=== PATIENT | male | born 1960 | race American Indian/Alaskan Native ===

== ENCOUNTER 2016-07-19 09:14 | Inpatient (IN) | payer BC ==
[2016-07-19 09:14] VITALS: BMI 26.7
[2016-07-19] MEDS ORDERED: Sodium Chloride 0.9% 500 ML IV STA (10:08)
--- NOTE | 2016-07-19 10:12 | ED PDOC ---
HPI: Back Time Seen by Provider: 07/19/16 10:04 Chief Complaint (Nursing): Back Pain Chief Complaint (Provider): Back pain History Per: Patient History/Exam Limitations: no limitations Onset/Duration Of Symptoms: Days (Months) Current Symptoms Are (Timing): Still Present Severity: Moderate Previous Symptoms: Back Pain Additional Complaint(s): Pt. here with back pain across lower. Constant, worsening. No numbness, tingles, weakness, headaches, chest pain, dyspnea. No incontinence or constipation. No fever abd pain. Seen by Dr. Carson. Getting treatment with no significant relief. Past Medical History Reviewed: Nursing Documentation, Vital Signs Vital Signs: Last Vital Signs Temp 98 F 07/19/16 09:30 Pulse 56 L 07/19/16 09:30 Resp 16 07/19/16 09:30 BP 144/87 07/19/16 09:30 Pulse Ox 100 07/19/16 09:30 - Medical History PMH: Back Problems, CAD, HTN, Chronic Kidney Disease Denies: Depression - Surgical History Surgical History: No Surg Hx - Family History Family History: States: Unknown Family Hx - Social History Current smoker - smoking cessation education provided: No Alcohol: None Drugs: Denies - Home Medications Home Medications: Ambulatory Orders Medication Instructions Recorded Aspirin [Ecotrin] 81 mg PO DAILY #0 tabec 08/24/14 Lisinopril [Zestril] 2.5 mg PO DAILY 06/01/16 Metoprolol Gibson/Hydrochlorothiaz 1 each PO DAILY 06/01/16 [Metoprolol ER-Hctz 50-12.5 mg] diaZEpam [Valium] 5 mg PO Q8 PRN #10 tab 06/01/16 oxyCODONE/Acetaminophen [Percocet 1 ea PO BID PRN #5 tab 07/04/16 5/325 mg Tab] Ibuprofen [Motrin Tab] 800 mg PO BID #12 tab 07/11/16 - Allergies Allergies/Adverse Reactions: Allergies Allergy/AdvReac Type Severity Reaction Status Date / Time No Known Allergies Allergy Verified 07/12/16 15:06 Review of Systems ROS Statement: Except As Marked, All Systems Reviewed And Found Negative Musculoskeletal: Positive for: Back Pain Physical Exam - Reviewed Nursing Documentation Reviewed: Yes Vital Signs Reviewed: Yes - Physical Exam Appears: Positive for: Non-toxic, No Acute Distress Head Exam: Positive for: ATRAUMATIC, NORMAL INSPECTION, NORMOCEPHALIC Skin: Positive for: Normal Color, Warm, DRY ENT: Positive for: Normal ENT Inspection. Negative for: Nasal Congestion, Pharyngeal Erythema Neck: Positive for: Normal, Painless ROM, Supple Cardiovascular/Chest: Positive for: Regular Rate, Rhythm Respiratory: Positive for: CNT, Normal Breath Sounds Gastrointestinal/Abdominal: Positive for: Normal Exam, Bowel Sounds, Soft. Negative for: Tenderness Back: Negative for: L CVA Tenderness, R CVA Tenderness, Vertebral Tenderness Extremity: Positive for: Other (straight leg positive at 45*). Negative for: Normal ROM (limited at the hips due to pain in back), Tenderness, Pedal Edema Neurologic/Psych: Positive for: Alert, Oriented - ECG O2 Sat by Pulse Oximetry: 100 Pulse Ox Interpretation: Normal - Progress ED Course And Treament: 1013: Spoke with Dr. Carson. Will admit for further evaluation. He will give further orders when pt. reaches floor. Disposition - Clinical Impression Clinical Impression: Back pain - Patient ED Disposition Is Patient to be Admitted: Yes Counseled Patient/Family Regarding: Diagnosis - Disposition Disposition Time: 10:14 Condition: STABLE - Pt Status Changed To: Hospital Disposition Of: Inpatient - Admit Certification Admit to Inpatient:: After my assessment, the patient will require hospitalization for at least two midnights. This is because of the severity of symptoms shown, intensity of services needed, and/or the medical risk in this patient being treated as an outpatient. - POA Present On Arrival: None
--- NOTE | 2016-07-19 10:31 | RAD ---
HISTORY: dyspnea COMPARISON: None available. TECHNIQUE: Chest, one view. FINDINGS: Examination limited by habitus. LUNGS: No focal consolidation. Please note that chest x-ray has limited sensitivity for the detection of pulmonary masses. PLEURA: No significant pleural effusion identified. No definite pneumothorax . CARDIOVASCULAR: Heart size appears top normal. OSSEOUS STRUCTURES: No acute osseous abnormality identified. VISUALIZED UPPER ABDOMEN: Unremarkable. OTHER FINDINGS: None. IMPRESSION: No focal consolidation, significant pleural effusion, or definite pneumothorax identified.
[2016-07-19 10:54] LABS: BASO % 1.2 % (0.0-2.0); EOS # 0.1 K/uL (0.0-0.7); EOS % 3.2 % (0.0-4.0); HEMATOCRIT 48.4 % (35.0-51.0); LYMPH # 1.7 K/uL (1.0-4.3); LYMPH % 42.4 % (20.0-40.0); MEAN CELL VOLUME 87.3 fl (80.0-94.0); MEAN CORPUSCULAR HEMOGLOBIN 28.9 pg (27.0-31.0); MEAN CORPUSCULAR HGB CONC 33.1 g/dL (33.0-37.0); MEAN PLATELET VOLUME 9.4 fl (7.2-11.7); MONO # 0.4 K/uL (0.0-0.8); MONO % 10.5 % (0.0-10.0); NEUT # 1.7 K/uL (1.8-7.0); NEUT % 42.7 % (50.0-75.0); NRBC % 0.3 % (0.0-0.0); RED CELL DISTRIBUTION WIDTH 12.8 % (11.5-14.5)
[2016-07-19 10:57] LABS: ALB/GLOB RATIO 1.2 (1.0-2.1); ALKALINE PHOSPHATASE 86 U/L (38-126); ALT/SGPT 23 U/L (21-72); AST/SGOT 21 U/L (17-59); BLOOD UREA NITROGEN 14 mg/dl (9-20); CALCIUM 9.5 mg/dL (8.4-10.2); CARBON DIOXIDE 31 mmol/L (22-30); CHLORIDE 102 mmol/L (98-107); GFR AFRICAN-AMERICAN > 60; GLUCOSE,RANDOM 90 mg/dL (75-110); POTASSIUM 3.8 MMOL/L (3.6-5.0); SODIUM 144 mmol/l (132-148); TOTAL PROTEIN 7.9 G/DL (6.3-8.2)
[2016-07-19 11:05] LABS: PARTIAL THROMBOPLASTIN TIME 28.1 SECONDS (23.3-32.5)
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
[2016-07-19] MEDS ORDERED: HYDROCHLOROTHIAZIDE PO SCH (17:00)
[2016-07-19] MEDS ORDERED: [UNRECOGNIZED DRUG - OTHER] PO SCH (17:00)
[2016-07-19] MEDS ORDERED: LISINOPRIL PO SCH (17:00)
[2016-07-20 06:38] LABS: HEMATOCRIT 51.2 % (35.0-51.0); MEAN CELL VOLUME 88.4 fl (80.0-94.0); MEAN CORPUSCULAR HEMOGLOBIN 28.6 pg (27.0-31.0); MEAN CORPUSCULAR HGB CONC 32.3 g/dL (33.0-37.0); RED CELL DISTRIBUTION WIDTH 12.7 % (11.5-14.5); WHITE BLOOD COUNT 5.4 K/uL (4.8-10.8)
[2016-07-20] MEDS ORDERED: Propofol 10 mg/ml Inj (20 ML) ONE ×3 (06:54→09:26)
[2016-07-20] MEDS ORDERED: Phenylephrine 10 mg/ml Inj ONE (06:55)
[2016-07-20] MEDS ORDERED: Succinylcholine 200 mg/10 ml Inj IV ONE ×2 (06:55→07:06)
[2016-07-20] MEDS ORDERED: ePHEDrine 50 mg/ml Inj ONE ×2 (06:55→07:06)
[2016-07-20] MEDS ORDERED: Rocuronium 10 mg/ml (5 ml) ONE ×2 (06:55→07:06)
[2016-07-20] MEDS ORDERED: Midazolam 2 MG/2 ML VIAL ONE ×2 (06:55→07:06)
[2016-07-20] MEDS ORDERED: Bupivacaine HCl 0.25% PF (30 ml) Inj ONE ×2 (07:01→07:51)
[2016-07-20] MEDS ORDERED: APROTININ/FIBRINOGEN(TISSEEL) ONE (07:02)
[2016-07-20] MEDS ORDERED: Absorbable Gelatin Sponge Size 12-7 ONE (07:02)
[2016-07-20] MEDS ORDERED: Bacitracin Ointment 30 GM TUBE ONE (07:02)
[2016-07-20] MEDS ORDERED: Thrombin Topical 5,000 IU Spray Kit ONE (07:02)
[2016-07-20 07:08] LABS: BLOOD UREA NITROGEN 17 mg/dl (9-20); CALCIUM 9.3 mg/dL (8.4-10.2); CARBON DIOXIDE 30 mmol/L (22-30); CHLORIDE 101 mmol/L (98-107); GFR AFRICAN-AMERICAN > 60; GLUCOSE,RANDOM 96 mg/dL (75-110); POTASSIUM 3.7 MMOL/L (3.6-5.0); SODIUM 142 mmol/l (132-148)
[2016-07-20] MEDS ORDERED: Lidocaine 2% w Epi 1:100,000 Inj IJ ONE (07:30)
[2016-07-20] MEDS ORDERED: Absorbable Gelatin Sponge Size 100 ONE (07:30)
[2016-07-20 08:07] LABS: RBC URINE 1 /hpf (0-3); URINE BILIRUBIN NEGATIVE (NEGATIVE); URINE BLOOD SMALL (NEGATIVE); URINE COLOR YELLOW (YELLOW); URINE GLUCOSE (UA) NEG (Normal); URINE KETONE NEGATIVE (NEGATIVE); URINE LEUKOCYTE ESTERASE NEG Leu/uL (Negative); URINE PROTEIN NEGATIVE (NEGATIVE); URINE UROBILINOGEN 0.2-1.0 mg/dL (0.2-1.0); WBC URINE < 1 /hpf (0-5)
[2016-07-20] MEDS ORDERED: Lactated Ringer's 1,000 ML IV ONE ×2 (08:25→13:00)
[2016-07-20] MEDS ORDERED: Sodium Chloride 0.9% 200 ML IV ONE (08:35)
[2016-07-20] MEDS ORDERED: HEMOSTATIC MATRIX 10 ML DIS.NEEDLE TOP ONE (09:00)
[2016-07-20] MEDS ORDERED: Metoprolol Succinate 100 mg XL Tab PO SCH (09:00)
[2016-07-20] MEDS ORDERED: Desflurane Inhalation Anesthetic Liq (240 ml) ONE (09:17)
[2016-07-20] MEDS ORDERED: Dexamethasone 4 mg/1 ml ONE (09:25)
[2016-07-20] MEDS ORDERED: Neostigmine Methylsulfate 2 MG/2 ML ML IV ONE (09:31)
[2016-07-20] MEDS ORDERED: Neostigmine Methylsulfate 3mg/3ml Syringe IV ONE (09:31)
[2016-07-20] MEDS ORDERED: Naloxone 0.4 mg/ml Inj (Adult) IVP PRN (10:37)
[2016-07-20] MEDS: HYDROmorphone 0.5 mg/0.5 ml ISec IVP PRN ×2 (10:50→11:30)
--- NOTE | 2016-07-20 12:06 | RAD ---
PROCEDURE: Intraoperative Fluoroscopy. HISTORY: PLIF FINDINGS: Fluoroscopic assistance was provided for . 35.1 seconds fluoroscopy time utilized during this procedure. Radiation dose = 21.05 mGy. Please refer to the operative report from Dr. Tali deal
--- NOTE | 2016-07-20 14:44 | CP.PCM.CON ---
History of Present Illness - History of Present Illness History of Present Illness: pt seen earlier this am,pt admitted with intractable LBP,ongoing for many year' s s/p fall down stair's,minimal improvement with chiropractic Rx and prescribed meds and PT,symptoms worsening over past year,with difficulty ambulating,out patient MRI showing lumbar spondylosis at L4-5 with severe canal stenosis, surgical and non surgical options d/w pt,due to worsening severity of symptoms pt wishes to proceed with surgical intervention,denies pelvic paresthesias, bowel or bladder incontinance. Review of Systems - Review of Systems Systems not reviewed;Unavailable: Acuity of Condition - Cardiovascular Additional comments: hx of palpitations and abnormal EKG's/asymptomatic,full w/u by his sales service coordinator, cardiac cath in past showing vessel blockage no intervention warranted,pt instructed to use ASA 81 daily,denies AR,angina - Gastrointestinal Additional comments: colonscopy 1 year ago,polypectomy/non cancerous,denies change in bowel habits - Neurological Neurological: As Per HPI - Hematologic/Lymphatic Additional comments: ASA 81 mg daily Past Patient History - Infectious Disease Hx of Infectious Diseases: None - Tetanus Immunizations Tetanus Immunization: Unknown - Past Social History Smoking Status: Never Smoked Chewing Tobacco Use: No Cigar Use: No 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 Alcohol: None Drugs: Denies Home Situation {Lives}: With Family Domestic Violence: Negative - CARDIAC Hx Cardiac Disorders: Yes - PULMONARY Hx Respiratory Disorders: No - NEUROLOGICAL Hx Neurological Disorder: No - HEENT Hx HEENT Problems: No - RENAL Hx Chronic Kidney Disease: Yes - ENDOCRINE/METABOLIC Hx Endocrine Disorders: No - HEMATOLOGICAL/ONCOLOGICAL Hx Blood Disorders: No - INTEGUMENTARY Hx Dermatological Problems: No - MUSCULOSKELETAL/RHEUMATOLOGICAL Hx Musculoskeletal Disorders: Yes Hx Back Pain: Yes (CHRONIC) Hx Falls: No - GASTROINTESTINAL Hx Gastrointestinal Disorders: No - GENITOURINARY/GYNECOLOGICAL Hx Genitourinary Disorders: No - PSYCHIATRIC Hx Depression: No - SURGICAL HISTORY Hx Cardiac Catheterization: Yes (NO STENTS) Other/Comment: Colonoscopy - ANESTHESIA Hx Anesthesia: Yes Hx Anesthesia Reactions: No Meds Allergies/Adverse Reactions: Allergies Allergy/AdvReac Type Severity Reaction Status Date / Time No Known Allergies Allergy Verified 07/12/16 15:06 - Medications Medications: Current Medications Acetaminophen (Tylenol 325mg Tab) 650 mg PO Q4 PRN PRN Reason: Pain, Mild (1-3) Aspirin (Ecotrin) 81 mg PO DAILY [facility] Cyanocobalamin (Vitamin B12) 250 mcg PO DAILY [facility] Hydrochlorothiazide (Microzide) 12.5 mg PO DAILY [facility] Hydromorphone HCl (Dilaudid) 0.5 mg IVP Q10M PRN PRN Reason: Pain, moderate (4-7) Last Admin: 07/20/16 11:30 Dose: 0.5 mg Hydromorphone HCl (Dilaudid 0.2 Mg/Ml Dining Room Host) 0 mg IV PRN PRN; Protocol PRN Reason: Pain, moderate (4-7) Last Admin: 07/20/16 12:51 Dose: 0 mg Lactated Ringer's (Lactated Ringer's) 1,000 mls @ 125 mls/hr IV .Q8H [facility] Dexamethasone 4 mg/ Sodium (Chloride) 51 mls @ 51 mls/hr IVPB Q8 [facility] Lisinopril (Zestril) 20 mg PO DAILY [facility] Last Admin: 07/19/16 13:49 Dose: Not Given Metoprolol Succinate (Toprol Xl) 100 mg PO DAILY [facility] Last Admin: 07/20/16 08:29 Dose: Not Given Morphine Sulfate (Morphine) 1 mg IVP Q4 PRN PRN Reason: Pain, moderate (4-7) Morphine Sulfate (Morphine) 2 mg IVP Q4 PRN PRN Reason: Pain, severe (8-10) Naloxone HCl (Narcan) 0.1 mg IVP Q2M PRN PRN Reason: Opiate reversal Physical Exam - Constitutional Appears: Well, Non-toxic, No Acute Distress - Head Exam Head Exam: ATRAUMATIC, NORMAL INSPECTION, NORMOCEPHALIC - ENT Exam ENT Exam: Mucous Membranes Moist, Normal Exam - Neck Exam Neck exam: Positive for: Normal Inspection - Respiratory Exam Respiratory Exam: Clear to Auscultation Bilateral, NORMAL BREATHING PATTERN - Cardiovascular Exam Cardiovascular Exam: REGULAR RHYTHM - GI/Abdominal Exam GI & Abdominal Exam: Normal Bowel Sounds, Soft Additional comments: no pelvic paresthesias - Rectal Exam Rectal Exam: Deferred - Extremities Exam Extremities exam: Positive for: normal inspection, pedal pulses present - Back Exam Back exam: vertebral tenderness - Neurological Exam Neurological exam: Alert, Oriented x3 Additional comments: RIVERO x 4 antigravity with 5/5 motor strength,sensory intact,depressed DTR's,neg babinski - Psychiatric Exam Psychiatric exam: Normal Affect, Normal Mood - Skin Skin Exam: Dry, Intact Results - Vital Signs Recent Vital Signs: Last Vital Signs Temp 97.3 F L 07/20/16 13:00 Pulse 57 L 07/20/16 13:15 Resp 18 07/20/16 13:15 BP 136/92 H 07/20/16 13:15 Pulse Ox 98 07/20/16 13:15 - Labs Result Diagrams: 07/20/16 06:20 07/20/16 06:20 - Impressions Impression: MRI images reviewed by Dr. Mederos Assessment & Plan - Assessment and Plan (Free Text) Assessment: 56 yo male with Lumbar Spondylosis,severe canal and foraminal stenosis, intractable pain/Instability Plan: due to worsening symptoms and difficulty ambulating,ADL's being effected,will proceed with proposed L4-5 Decompressive Lumbar Laminectomy and Instrumeneted Fusion,risks and benefits d/w pt,expressed understanding and wishes to proceed.
--- NOTE | 2016-07-20 16:06 | CP.PCM.PN ---
<AnilCeciliomisty - Last Filed: 07/20/16 16:02> Subjective - Date & Time of Evaluation Date of Evaluation: 07/20/16 Time of Evaluation: 16:02 - Subjective Subjective: d/w attending. no overnight events. s/p laminectomy L4-L5. pain controlled. MARK drain in place S/S x1 Objective - Vital Signs/Intake and Output Vital Signs (last 24 hours): Temp Pulse Resp BP Pulse Ox 97.9 F 65 20 131/84 95 07/20/16 15:42 07/20/16 15:42 07/20/16 15:42 07/20/16 15:42 07/20/16 15:42 Intake and Output: 07/20/16 07/20/16 06:59 18:59 Intake Total 300 Balance 300 - Medications Medications: Current Medications Acetaminophen (Tylenol 325mg Tab) 650 mg PO Q4 PRN PRN Reason: Pain, Mild (1-3) Aspirin (Ecotrin) 81 mg PO DAILY [facility] Cyanocobalamin (Vitamin B12) 250 mcg PO DAILY [facility] Hydrochlorothiazide (Microzide) 12.5 mg PO DAILY [facility] Hydromorphone HCl (Dilaudid) 0.5 mg IVP Q10M PRN PRN Reason: Pain, moderate (4-7) Last Admin: 07/20/16 11:30 Dose: 0.5 mg Hydromorphone HCl (Dilaudid 0.2 Mg/Ml Early Childhood Education Worker) 0 mg IV PRN PRN; Protocol PRN Reason: Pain, moderate (4-7) Last Admin: 07/20/16 12:51 Dose: 0 mg Lactated Ringer's (Lactated Ringer's) 1,000 mls @ 125 mls/hr IV .Q8H [facility] Dexamethasone 4 mg/ Sodium (Chloride) 51 mls @ 51 mls/hr IVPB Q8 [facility] Lisinopril (Zestril) 20 mg PO DAILY [facility] Last Admin: 07/19/16 13:49 Dose: Not Given Metoprolol Succinate (Toprol Xl) 100 mg PO DAILY [facility] Last Admin: 07/20/16 08:29 Dose: Not Given Morphine Sulfate (Morphine) 1 mg IVP Q4 PRN PRN Reason: Pain, moderate (4-7) Morphine Sulfate (Morphine) 2 mg IVP Q4 PRN PRN Reason: Pain, severe (8-10) Naloxone HCl (Narcan) 0.1 mg IVP Q2M PRN PRN Reason: Opiate reversal - Labs Labs: PT 11.4 SECONDS (9.6-11.2) H 07/19/16 10:40 INR 1.10 (0.92-1.08) H 07/19/16 10:40 APTT 28.1 SECONDS (23.3-32.5) 07/19/16 10:40 - Constitutional Appears: Non-toxic, No Acute Distress - Head Exam Head Exam: NORMAL INSPECTION - Eye Exam Eye Exam: Normal appearance - ENT Exam ENT Exam: Mucous Membranes Moist - Neck Exam Neck Exam: Normal Inspection - Respiratory Exam Respiratory Exam: Clear to Ausculation Bilateral - Cardiovascular Exam Cardiovascular Exam: Bradycardia, REGULAR RHYTHM - GI/Abdominal Exam GI & Abdominal Exam: Soft - Extremities Exam Extremities Exam: Normal Inspection - Back Exam Additional comments: binder in place MARK x1 S/S - Neurological Exam Neurological Exam: Alert, Oriented x3 - Skin Skin Exam: Dry, Warm Assessment and Plan - Assessment and Plan (Free Text) Assessment: 56yo M with PMHx HTN and cardiac cath admitted for intractable back pain. POD #0 s/p L4-L5 laminectomy -NS on board, appreciate input -pain control -steroid taper HTN -c/w home meds bradycardia -troponin neg -prior cardiac workup neg DVT ppx -SCDs -restart pharmacological agents per NS <Singh Carson - Last Filed: 07/24/16 10:17> Objective - Vital Signs/Intake and Output Vital Signs (last 24 hours): Temp Pulse Resp BP Pulse Ox 97.7 F 56 L 20 148/81 99 07/24/16 08:30 07/24/16 09:22 07/24/16 08:30 07/24/16 09:22 07/24/16 08:30 Intake and Output: 07/24/16 07/24/16 06:59 18:59 Intake Total 700 Output Total 560 Balance 140 - Medications Medications: Current Medications Acetaminophen (Tylenol 325mg Tab) 650 mg PO Q4 PRN PRN Reason: Pain, Mild (1-3) Chlorpromazine (Thorazine) 25 mg PO Q8 [facility] Hydrochlorothiazide (Microzide) 12.5 mg PO DAILY [facility] Last Admin: 07/24/16 09:21 Dose: 12.5 mg Lisinopril (Zestril) 20 mg PO DAILY [facility] Last Admin: 07/24/16 09:22 Dose: 20 mg Metoprolol Tartrate (Lopressor) 25 mg PO Q12 [facility] Last Admin: 07/24/16 09:17 Dose: Not Given Pantoprazole Sodium (Protonix Ec Tab) 40 mg PO DAILY [facility] Senna/Docusate Sodium (Senokot S 50 Mg-8.6 Mg) 1 tab PO HS [facility] Last Admin: 07/23/16 21:11 Dose: Not Given Simethicone (Mylicon Chew Tab) 80 mg PO PCHS PRN PRN Reason: Flatulence Last Admin: 07/24/16 02:25 Dose: 80 mg Tramadol HCl (Ultram) 50 mg PO Q6 PRN PRN Reason: Pain, severe (8-10) - Labs Labs: 07/23/16 06:30 07/23/16 06:30 PT 11.4 SECONDS (9.6-11.2) H 07/19/16 10:40 INR 1.10 (0.92-1.08) H 07/19/16 10:40 APTT 28.1 SECONDS (23.3-32.5) 07/19/16 10:40 Assessment and Plan (1) Lumbosacral radiculopathy Status: Acute (2) Lumbar herniated disc Status: Acute (3) Hypertension Status: Acute (4) Gastritis Status: Acute (5) GERD (gastroesophageal reflux disease) Status: Acute - Assessment and Plan (Free Text) Plan: I was present during evaluation and examined patient Discussed with DR Lawanda zaidi plans of care and pain meds. Singh Carson M.D.
[2016-07-20] MEDS: Dexamethasone 4 MG in Sodium Chloride 0.9% 50 ML IVPB SCH (17:10)
[2016-07-20] MEDS: CYANOCOBALAMIN 500 MCG TAB PO SCH (17:12)
[2016-07-20] MEDS: Lactated Ringer's 1,000 ML IV SCH ×2 (17:12→20:26)
[2016-07-21] MEDS: Dexamethasone 4 MG in Sodium Chloride 0.9% 50 ML IVPB SCH ×3 (00:51→16:09)
[2016-07-21] MEDS: Lactated Ringer's 1,000 ML IV SCH ×3 (05:24→17:50)
[2016-07-21 06:54] LABS: BASO % 0.1 % (0.0-2.0); HEMATOCRIT 44.4 % (35.0-51.0); LYMPH # 0.8 K/uL (1.0-4.3); LYMPH % 7.9 % (20.0-40.0); MEAN CELL VOLUME 87.4 fl (80.0-94.0); MEAN CORPUSCULAR HEMOGLOBIN 28.9 pg (27.0-31.0); MEAN CORPUSCULAR HGB CONC 33.1 g/dL (33.0-37.0); MEAN PLATELET VOLUME 9.6 fl (7.2-11.7); MONO # 0.4 K/uL (0.0-0.8); MONO % 4.1 % (0.0-10.0); NEUT # 9.2 K/uL (1.8-7.0); NEUT % 87.9 % (50.0-75.0); NRBC % 0.1 % (0.0-0.0); PLATELET COUNT 172 K/uL (130-400); RED CELL DISTRIBUTION WIDTH 12.6 % (11.5-14.5); WHITE BLOOD COUNT 10.4 K/uL (4.8-10.8)
[2016-07-21 06:59] LABS: BLOOD UREA NITROGEN 18 mg/dl (9-20); CALCIUM 9.1 mg/dL (8.4-10.2); CARBON DIOXIDE 24 mmol/L (22-30); CHLORIDE 102 mmol/L (98-107); GFR AFRICAN-AMERICAN > 60; GLUCOSE,RANDOM 139 mg/dL (75-110); POTASSIUM 3.9 MMOL/L (3.6-5.0); SODIUM 140 mmol/l (132-148)
--- NOTE | 2016-07-21 07:28 | OP ---
PROCEDURE DATE: 07/20/2016 PREOPERATIVE DIAGNOSIS: Lumbar spondylosis. POSTOPERATIVE DIAGNOSIS: Lumbar spondylosis. PROCEDURE: Left L4-5 hemilaminotomy, decompression, L4-5 pedicle screw fixation instrumentation usin g Amendia system, L4-5 posterolateral fusion. Fluoroscopy has been used. Microscope has been used. SURGEON: Dr. Mederos. CANCER PROGRAM DIRECTOR: GARY Olmedo. Nicole Rodríguez stayed throughout the case from the beg inning to the end and helped me perform the surgery. DESCRIPTION OF PROCEDURE: The patient was brought to the operating room, administered general endotr acheal anesthesia, placed in a prone position on the Inder table. Care was taken to protect all th e pressure points. Back of the lumbar area thoroughly prepped and draped in the same sterile manner after marking for the skin incision for lumbar laminectomy and fusion at L4-5. After prepping and dr aping the area, skin has been incised. Bleeding skins have been controlled with bipolar form setter steel pan forms. Using a Bovie form setter steel pan forms, the paraspinal muscles have been detached from attachment of spinous proce ss and lamina of L4-5 bilaterally. Identification of levels has been done with the help of fluorosco py. At this point, by using traditional landmark, point of entry has been noted for the pedicle scre w fixation at L4-5. Initially, a K-wire, later a drill has been used in order to enter the pedicles of L4-5. Polyaxial titanium screws placed. Amendia system has been placed in the pedicles of L4-5 u nder fluoroscopy-guided control. After that, the titanium rods have been placed. The cap nuts have been used in order to secure them. At this point, under microscopic examination on the left side, he milaminotomy has been performed including the removal of the facet and the ligamentum flavum on the l eft side and at this point, once this has been done, the lateral aspect of the facet joint, transvers e process have been decorticated. Demineralized bone placed in the area achieving a posterolateral f usion. After that, hemostasis was best achieved. Inder-Perez drain placed in the wound, brought o ut through a separate stab next to incision. Muscles and fascia closed with 1-0 Vicryl, subcutaneous with 3-0 Vicryl. Skin has been closed with intradermal 3-0 Vicryl stitches. The patient tolerated the procedure. After procedure, mobilized to the recovery room in stable condition. Kurtis Mederos MD cc: [phone] TT: 07/21/2016 06:57:53 tn
--- NOTE | 2016-07-21 08:53 | CP.PCM.PN ---
<AnilLawanda - Last Filed: 07/21/16 08:50> Subjective - Date & Time of Evaluation Date of Evaluation: 07/21/16 Time of Evaluation: 08:50 - Subjective Subjective: evaluated with attending. no overnight events. s/p laminectomy L4-L5. pain controlled. MARK drain in place S/S x1. plan to walk today Objective - Vital Signs/Intake and Output Vital Signs (last 24 hours): Temp Pulse Resp BP Pulse Ox 98.0 F 60 20 125/77 98 07/21/16 08:21 07/21/16 08:21 07/21/16 08:21 07/21/16 08:21 07/21/16 08:21 Intake and Output: 07/21/16 07/21/16 06:59 18:59 Output Total 940 Balance -940 - Medications Medications: Current Medications Acetaminophen (Tylenol 325mg Tab) 650 mg PO Q4 PRN PRN Reason: Pain, Mild (1-3) Aspirin (Ecotrin) 81 mg PO DAILY [facility] Last Admin: 07/20/16 17:12 Dose: Not Given Cyanocobalamin (Vitamin B12) 250 mcg PO DAILY [facility] Last Admin: 07/20/16 17:12 Dose: Not Given Hydrochlorothiazide (Microzide) 12.5 mg PO DAILY [facility] Last Admin: 07/21/16 08:39 Dose: 12.5 mg Hydromorphone HCl (Dilaudid) 0.5 mg IVP Q10M PRN PRN Reason: Pain, moderate (4-7) Last Admin: 07/20/16 11:30 Dose: 0.5 mg Hydromorphone HCl (Dilaudid 0.2 Mg/Ml Missile Technician) 0 mg IV PRN PRN; Protocol PRN Reason: Pain, moderate (4-7) Last Admin: 07/20/16 12:51 Dose: 0 mg Lactated Ringer's (Lactated Ringer's) 1,000 mls @ 125 mls/hr IV .Q8H [facility] Last Admin: 07/21/16 05:24 Dose: Not Given Dexamethasone 4 mg/ Sodium (Chloride) 51 mls @ 51 mls/hr IVPB Q8 [facility] Last Admin: 07/21/16 08:38 Dose: 51 mls/hr Cefazolin Sodium 1 gm/ Sodium (Chloride) 100 mls @ 100 mls/hr IVPB Q12 [facility] Lisinopril (Zestril) 20 mg PO DAILY [facility] Last Admin: 07/20/16 17:12 Dose: Not Given Metoprolol Tartrate (Lopressor) 25 mg PO Q12 [facility] Morphine Sulfate (Morphine) 1 mg IVP Q4 PRN PRN Reason: Pain, moderate (4-7) Morphine Sulfate (Morphine) 2 mg IVP Q4 PRN PRN Reason: Pain, severe (8-10) Naloxone HCl (Narcan) 0.1 mg IVP Q2M PRN PRN Reason: Opiate reversal - Labs Labs: 07/21/16 05:50 07/21/16 05:50 PT 11.4 SECONDS (9.6-11.2) H 07/19/16 10:40 INR 1.10 (0.92-1.08) H 07/19/16 10:40 APTT 28.1 SECONDS (23.3-32.5) 07/19/16 10:40 - Constitutional Appears: Non-toxic, No Acute Distress - Head Exam Head Exam: ATRAUMATIC, NORMAL INSPECTION - Eye Exam Eye Exam: Normal appearance - ENT Exam ENT Exam: Mucous Membranes Moist - Neck Exam Neck Exam: Normal Inspection - Respiratory Exam Respiratory Exam: Clear to Ausculation Bilateral - Cardiovascular Exam Cardiovascular Exam: REGULAR RHYTHM - GI/Abdominal Exam GI & Abdominal Exam: Soft - Extremities Exam Extremities Exam: Normal Inspection - Back Exam Additional comments: dressing in place - Neurological Exam Neurological Exam: Alert, Oriented x3 - Skin Skin Exam: Dry, Warm Assessment and Plan - Assessment and Plan (Free Text) Assessment: 56yo M with PMHx HTN and cardiac cath admitted for intractable back pain. POD #1 s/p L4-L5 laminectomy -NS on board, appreciate input -pain control -steroid taper -PT/OT -encourage OOB and walking -MARK drain in place HTN -c/w home meds bradycardia -troponin neg -prior cardiac workup neg DVT ppx -SCDs -restart pharmacological agents per NS <Singh Carson - Last Filed: 07/24/16 10:18> Objective - Vital Signs/Intake and Output Vital Signs (last 24 hours): Temp Pulse Resp BP Pulse Ox 97.7 F 56 L 20 148/81 99 07/24/16 08:30 07/24/16 09:22 07/24/16 08:30 07/24/16 09:22 07/24/16 08:30 Intake and Output: 07/24/16 07/24/16 06:59 18:59 Intake Total 700 Output Total 560 Balance 140 - Medications Medications: Current Medications Acetaminophen (Tylenol 325mg Tab) 650 mg PO Q4 PRN PRN Reason: Pain, Mild (1-3) Chlorpromazine (Thorazine) 25 mg PO Q8 [facility] Hydrochlorothiazide (Microzide) 12.5 mg PO DAILY [facility] Last Admin: 07/24/16 09:21 Dose: 12.5 mg Lisinopril (Zestril) 20 mg PO DAILY [facility] Last Admin: 07/24/16 09:22 Dose: 20 mg Metoprolol Tartrate (Lopressor) 25 mg PO Q12 [facility] Last Admin: 07/24/16 09:17 Dose: Not Given Pantoprazole Sodium (Protonix Ec Tab) 40 mg PO DAILY [facility] Senna/Docusate Sodium (Senokot S 50 Mg-8.6 Mg) 1 tab PO HS [facility] Last Admin: 07/23/16 21:11 Dose: Not Given Simethicone (Mylicon Chew Tab) 80 mg PO [facility] PRN PRN Reason: Flatulence Last Admin: 07/24/16 02:25 Dose: 80 mg Tramadol HCl (Ultram) 50 mg PO Q6 PRN PRN Reason: Pain, severe (8-10) - Labs Labs: 07/23/16 06:30 07/23/16 06:30 PT 11.4 SECONDS (9.6-11.2) H 07/19/16 10:40 INR 1.10 (0.92-1.08) H 07/19/16 10:40 APTT 28.1 SECONDS (23.3-32.5) 07/19/16 10:40 Assessment and Plan (1) Lumbosacral radiculopathy Status: Acute (2) Lumbar herniated disc Status: Acute (3) Hypertension Status: Acute (4) Gastritis Status: Acute (5) GERD (gastroesophageal reflux disease) Status: Acute - Assessment and Plan (Free Text) Plan: I was present during evaluation and discussed with Dr Webber re: management. Singh Carson M.D.
[2016-07-21] MEDS: CYANOCOBALAMIN 500 MCG TAB PO SCH (09:47)
[2016-07-21] MEDS: ceFAZolin 1 GM in Sodium Chloride 0.9% 100 ML IVPB SCH ×2 (10:07→22:04)
[2016-07-21 10:59] LABS: NEUTROPHIL 92 % (42-75); TOTAL CELLS COUNTED 100
[2016-07-22] MEDS: Dexamethasone 4 MG in Sodium Chloride 0.9% 50 ML IVPB SCH ×3 (00:57→17:25)
[2016-07-22 06:24] LABS: HEMATOCRIT 40.3 % (35.0-51.0); MEAN CELL VOLUME 87.9 fl (80.0-94.0); MEAN CORPUSCULAR HEMOGLOBIN 28.4 pg (27.0-31.0); MEAN CORPUSCULAR HGB CONC 32.4 g/dL (33.0-37.0); RED CELL DISTRIBUTION WIDTH 12.7 % (11.5-14.5)
[2016-07-22 06:42] LABS: BLOOD UREA NITROGEN 20 mg/dl (9-20); CARBON DIOXIDE 26 mmol/L (22-30); CHLORIDE 106 mmol/L (98-107); GFR AFRICAN-AMERICAN > 60; GLUCOSE,RANDOM 147 mg/dL (75-110); POTASSIUM 4.1 MMOL/L (3.6-5.0); SODIUM 141 mmol/l (132-148)
[2016-07-22] MEDS: ceFAZolin 1 GM in Sodium Chloride 0.9% 100 ML IVPB SCH ×2 (08:57→21:53)
[2016-07-22] MEDS: CYANOCOBALAMIN 500 MCG TAB PO SCH (08:59)
--- NOTE | 2016-07-22 13:41 | CP.PCM.PN ---
<AnilCeciliomisty - Last Filed: 07/22/16 13:38> Subjective - Date & Time of Evaluation Date of Evaluation: 07/22/16 Time of Evaluation: 13:38 - Subjective Subjective: evaluated with attending. no overnight events. s/p laminectomy L4-L5. pain controlled. MARK drain in place S/S x1. no BM Objective - Vital Signs/Intake and Output Vital Signs (last 24 hours): Temp Pulse Resp BP Pulse Ox 98.1 F 58 L 20 140/90 99 07/22/16 12:44 07/22/16 12:44 07/22/16 12:44 07/22/16 12:44 07/22/16 12:44 Intake and Output: 07/22/16 07/22/16 06:59 18:59 Output Total 1345 Balance -1345 - Medications Medications: Current Medications Acetaminophen (Tylenol 325mg Tab) 650 mg PO Q4 PRN PRN Reason: Pain, Mild (1-3) Cyanocobalamin (Vitamin B12) 250 mcg PO DAILY [facility] Last Admin: 07/22/16 08:59 Dose: 250 mcg Hydrochlorothiazide (Microzide) 12.5 mg PO DAILY [facility] Last Admin: 07/22/16 08:59 Dose: 12.5 mg Hydromorphone HCl (Dilaudid) 0.5 mg IVP Q10M PRN PRN Reason: Pain, moderate (4-7) Last Admin: 07/20/16 11:30 Dose: 0.5 mg Lactated Ringer's (Lactated Ringer's) 1,000 mls @ 125 mls/hr IV .Q8H [facility] Last Admin: 07/21/16 17:50 Dose: Not Given Dexamethasone 4 mg/ Sodium (Chloride) 51 mls @ 51 mls/hr IVPB Q8 [facility] Last Admin: 07/22/16 08:56 Dose: 51 mls/hr Cefazolin Sodium 1 gm/ Sodium (Chloride) 100 mls @ 100 mls/hr IVPB Q12 [facility] Last Admin: 07/22/16 08:57 Dose: 100 mls/hr Lisinopril (Zestril) 20 mg PO DAILY [facility] Last Admin: 07/22/16 08:59 Dose: 20 mg Metoprolol Tartrate (Lopressor) 25 mg PO Q12 [facility] Last Admin: 07/22/16 08:58 Dose: Not Given Morphine Sulfate (Morphine) 1 mg IVP Q4 PRN PRN Reason: Pain, moderate (4-7) Last Admin: 07/21/16 18:15 Dose: 1 mg Morphine Sulfate (Morphine) 2 mg IVP Q4 PRN PRN Reason: Pain, severe (8-10) Naloxone HCl (Narcan) 0.1 mg IVP Q2M PRN PRN Reason: Opiate reversal Ondansetron HCl (Zofran Inj) 4 mg IVP Q6 PRN PRN Reason: Nausea/Vomiting Last Admin: 07/21/16 18:32 Dose: 4 mg - Labs Labs: 07/22/16 05:35 07/22/16 05:35 PT 11.4 SECONDS (9.6-11.2) H 07/19/16 10:40 INR 1.10 (0.92-1.08) H 07/19/16 10:40 APTT 28.1 SECONDS (23.3-32.5) 07/19/16 10:40 - Constitutional Appears: Non-toxic - Head Exam Head Exam: NORMAL INSPECTION - Eye Exam Eye Exam: Normal appearance - ENT Exam ENT Exam: Mucous Membranes Moist - Neck Exam Neck Exam: Normal Inspection - Respiratory Exam Respiratory Exam: Clear to Ausculation Bilateral - Cardiovascular Exam Cardiovascular Exam: REGULAR RHYTHM - GI/Abdominal Exam GI & Abdominal Exam: Soft - Extremities Exam Extremities Exam: Normal Inspection - Back Exam Additional comments: binder in place MARK drain S/S - Neurological Exam Neurological Exam: Alert, Oriented x3 - Skin Skin Exam: Dry, Warm Assessment and Plan - Assessment and Plan (Free Text) Assessment: 56yo M with PMHx HTN and cardiac cath admitted for intractable back pain. POD #2 s/p L4-L5 laminectomy -NS on board, appreciate input -pain control -steroid taper -PT/OT -encourage OOB and walking -MARK drain in place HTN -c/w home meds bradycardia -troponin neg -prior cardiac workup neg DVT ppx -SCDs -restart pharmacological agents per NS. will wait d/t MARK drainage Dispo: likely d/c to TCU tomorrow if MARK drainage decreases <Singh Carson - Last Filed: 07/24/16 10:19> Objective - Vital Signs/Intake and Output Vital Signs (last 24 hours): Temp Pulse Resp BP Pulse Ox 97.7 F 56 L 20 148/81 99 07/24/16 08:30 07/24/16 09:22 07/24/16 08:30 07/24/16 09:22 07/24/16 08:30 Intake and Output: 07/24/16 07/24/16 06:59 18:59 Intake Total 700 Output Total 560 Balance 140 - Medications Medications: Current Medications Acetaminophen (Tylenol 325mg Tab) 650 mg PO Q4 PRN PRN Reason: Pain, Mild (1-3) Chlorpromazine (Thorazine) 25 mg PO Q8 [facility] Hydrochlorothiazide (Microzide) 12.5 mg PO DAILY [facility] Last Admin: 07/24/16 09:21 Dose: 12.5 mg Lisinopril (Zestril) 20 mg PO DAILY [facility] Last Admin: 07/24/16 09:22 Dose: 20 mg Metoprolol Tartrate (Lopressor) 25 mg PO Q12 [facility] Last Admin: 07/24/16 09:17 Dose: Not Given Pantoprazole Sodium (Protonix Ec Tab) 40 mg PO DAILY [facility] Senna/Docusate Sodium (Senokot S 50 Mg-8.6 Mg) 1 tab PO HS [facility] Last Admin: 07/23/16 21:11 Dose: Not Given Simethicone (Mylicon Chew Tab) 80 mg PO [facility] PRN PRN Reason: Flatulence Last Admin: 07/24/16 02:25 Dose: 80 mg Tramadol HCl (Ultram) 50 mg PO Q6 PRN PRN Reason: Pain, severe (8-10) - Labs Labs: 07/23/16 06:30 07/23/16 06:30 PT 11.4 SECONDS (9.6-11.2) H 07/19/16 10:40 INR 1.10 (0.92-1.08) H 07/19/16 10:40 APTT 28.1 SECONDS (23.3-32.5) 07/19/16 10:40 Assessment and Plan (1) Lumbosacral radiculopathy Status: Acute (2) Lumbar herniated disc Status: Acute (3) Hypertension Status: Acute (4) Gastritis Status: Acute (5) GERD (gastroesophageal reflux disease) Status: Acute - Assessment and Plan (Free Text) Plan: I was present during evaluation and discussed with Dr Lawanda zaidi plans of care and management. Singh Carson M.D.
--- NOTE | 2016-07-22 19:10 | CARD ---
APPROVED REPORT EKG Measurement Heart [id number] <Conclusion> Sinus bradycardia Left ventricular hypertrophy with repolarization abnormality ST elevation, consider inferior injury or acute infarct Prolonged QT ACUTE NV / STEMI Consider right ventricular involvement in acute inferior infarct Abnormal ECG
[2016-07-22] MEDS: Docusate-Senna 50 mg-8.6 mg Tab PO SCH (21:57)
[2016-07-23] MEDS: Dexamethasone 4 MG in Sodium Chloride 0.9% 50 ML IVPB SCH ×3 (00:40→17:31)
[2016-07-23 07:43] LABS: HEMATOCRIT 40.8 % (35.0-51.0); MEAN CELL VOLUME 88.6 fl (80.0-94.0); MEAN CORPUSCULAR HEMOGLOBIN 28.3 pg (27.0-31.0); MEAN CORPUSCULAR HGB CONC 31.9 g/dL (33.0-37.0); RED CELL DISTRIBUTION WIDTH 12.5 % (11.5-14.5); WHITE BLOOD COUNT 14.1 K/uL (4.8-10.8)
[2016-07-23 08:36] LABS: BLOOD UREA NITROGEN 21 mg/dl (9-20); CALCIUM 8.9 mg/dL (8.4-10.2); CARBON DIOXIDE 29 mmol/L (22-30); CHLORIDE 105 mmol/L (98-107); GFR AFRICAN-AMERICAN > 60; GLUCOSE,RANDOM 119 mg/dL (75-110); POTASSIUM 3.8 MMOL/L (3.6-5.0); SODIUM 141 mmol/l (132-148)
[2016-07-23] MEDS: ceFAZolin 1 GM in Sodium Chloride 0.9% 100 ML IVPB SCH ×2 (09:10→20:48)
[2016-07-23] MEDS: CYANOCOBALAMIN 500 MCG TAB PO SCH (09:13)
--- NOTE | 2016-07-23 13:19 | CP.PCM.PN ---
Subjective - Date & Time of Evaluation Date of Evaluation: 07/23/16 Time of Evaluation: 13:18 - Subjective Subjective: Patient still has a lot of drainage. Has minimal pain Has no SOB. Has no fever Noted elevated WBC most probably from Decadron. Has some GERD sx Objective - Vital Signs/Intake and Output Vital Signs (last 24 hours): Temp Pulse Resp BP Pulse Ox 98.3 F 55 L 20 145/91 H 97 07/23/16 12:52 07/23/16 12:52 07/23/16 12:52 07/23/16 12:52 07/23/16 12:52 Intake and Output: 07/23/16 07/23/16 06:59 18:59 Intake Total 460 Output Total 320 Balance 140 - Medications Medications: Current Medications Acetaminophen (Tylenol 325mg Tab) 650 mg PO Q4 PRN PRN Reason: Pain, Mild (1-3) Cyanocobalamin (Vitamin B12) 250 mcg PO DAILY [facility] Last Admin: 07/23/16 09:13 Dose: 250 mcg Hydrochlorothiazide (Microzide) 12.5 mg PO DAILY [facility] Last Admin: 07/23/16 09:13 Dose: 12.5 mg Dexamethasone 4 mg/ Sodium (Chloride) 51 mls @ 51 mls/hr IVPB Q8 [facility] Last Admin: 07/23/16 09:12 Dose: 51 mls/hr Cefazolin Sodium 1 gm/ Sodium (Chloride) 100 mls @ 100 mls/hr IVPB Q12 [facility] Last Admin: 07/23/16 09:10 Dose: 100 mls/hr Ibuprofen (Motrin Tab) 600 mg PO Q6 PRN PRN Reason: Pain, moderate (4-7) Lactulose (Enulose) 20 gm PO TID [facility] Last Admin: 07/23/16 12:28 Dose: 20 gm Lisinopril (Zestril) 20 mg PO DAILY [facility] Last Admin: 07/23/16 09:13 Dose: 20 mg Metoprolol Tartrate (Lopressor) 25 mg PO Q12 [facility] Last Admin: 07/23/16 09:21 Dose: Not Given Naloxone HCl (Narcan) 0.1 mg IVP Q2M PRN PRN Reason: Opiate reversal Ondansetron HCl (Zofran Inj) 4 mg IVP Q6 PRN PRN Reason: Nausea/Vomiting Last Admin: 07/21/16 18:32 Dose: 4 mg Senna/Docusate Sodium (Senokot S 50 Mg-8.6 Mg) 1 tab PO HS [facility] Last Admin: 07/22/16 21:57 Dose: 1 tab Tramadol HCl (Ultram) 50 mg PO Q6 PRN PRN Reason: Pain, severe (8-10) - Labs Labs: 07/23/16 06:30 07/23/16 06:30 PT 11.4 SECONDS (9.6-11.2) H 07/19/16 10:40 INR 1.10 (0.92-1.08) H 07/19/16 10:40 APTT 28.1 SECONDS (23.3-32.5) 07/19/16 10:40 - Head Exam Head Exam: NORMAL INSPECTION - Eye Exam Eye Exam: Normal appearance - ENT Exam ENT Exam: Mucous Membranes Moist - Respiratory Exam Respiratory Exam: Clear to Ausculation Bilateral - Cardiovascular Exam Cardiovascular Exam: REGULAR RHYTHM - GI/Abdominal Exam GI & Abdominal Exam: Normal Bowel Sounds - Extremities Exam Extremities Exam: Full ROM - Neurological Exam Neurological Exam: Awake, Oriented x3 Assessment and Plan (1) Lumbosacral radiculopathy Status: Acute (2) Lumbar herniated disc Status: Acute (3) Hypertension Status: Acute (4) Gastritis Status: Acute (5) GERD (gastroesophageal reflux disease) Status: Acute - Assessment and Plan (Free Text) Plan: Cont meds Cont tx Cont PT Protonix DCplan for AM.
[2016-07-23] MEDS: Docusate-Senna 50 mg-8.6 mg Tab PO SCH (21:11)
[2016-07-24] MEDS: Dexamethasone 4 MG in Sodium Chloride 0.9% 50 ML IVPB SCH ×2 (00:04→09:16)
[2016-07-24] MEDS ORDERED: Simethicone 80 mg Chewtab PO PRN (01:40)
[2016-07-24 08:31] VITALS: BP 148/81; RESP 20; TEMP 97.7; O2SAT 99
[2016-07-24] MEDS: ceFAZolin 1 GM in Sodium Chloride 0.9% 100 ML IVPB SCH (09:16)
[2016-07-24] MEDS: CYANOCOBALAMIN 500 MCG TAB PO SCH (09:22)
[2016-07-24 09:23] VITALS: PULSE 56
[2016-07-24] MEDS ORDERED: Pantoprazole 40 mg EC Tab PO SCH (10:15)
--- NOTE | 2016-07-24 10:22 | CP.PCM.DIS ---
Provider - Provider Date of Admission: 07/20/16 11:36 Attending physician: Singh Carson MD Time Spent in preparation of Discharge (in minutes): 30 Diagnosis - Discharge Diagnosis (1) Lumbosacral radiculopathy Status: Acute (2) Lumbar herniated disc Status: Acute (3) Hypertension Status: Acute (4) Gastritis Status: Acute (5) GERD (gastroesophageal reflux disease) Status: Acute Hospital Course - Lab Results Lab Results: Most Recent Lab Values WBC 14.1 K/uL (4.8-10.8) H 07/23/16 06:30 RBC 4.60 Mil/uL (4.40-5.90) 07/23/16 06:30 Hgb 13.0 g/dL (12.0-18.0) 07/23/16 06:30 Hct 40.8 % (35.0-51.0) 07/23/16 06:30 MCV 88.6 fl (80.0-94.0) 07/23/16 06:30 MCH 28.3 pg (27.0-31.0) 07/23/16 06:30 MCHC 31.9 g/dL (33.0-37.0) L 07/23/16 06:30 RDW 12.5 % (11.5-14.5) 07/23/16 06:30 Plt Count 154 K/uL (130-400) 07/23/16 06:30 MPV 9.6 fl (7.2-11.7) 07/21/16 05:50 Neut % (Auto) 87.9 % (50.0-75.0) H 07/21/16 05:50 Lymph % (Auto) 7.9 % (20.0-40.0) L 07/21/16 05:50 Burt % (Auto) 4.1 % (0.0-10.0) 07/21/16 05:50 Eos % (Auto) 0.0 % (0.0-4.0) 07/21/16 05:50 Baso % (Auto) 0.1 % (0.0-2.0) 07/21/16 05:50 Neut # 9.2 K/uL (1.8-7.0) H 07/21/16 05:50 Lymph # 0.8 K/uL (1.0-4.3) L 07/21/16 05:50 Burt # 0.4 K/uL (0.0-0.8) 07/21/16 05:50 Eos # 0.0 K/uL (0.0-0.7) 07/21/16 05:50 Baso # 0.0 K/uL (0.0-0.2) 07/21/16 05:50 Neutrophils % (Manual) 92 % (42-75) H 07/21/16 05:50 Band Neutrophils % 3 % (0-2) H 07/21/16 05:50 Lymphocytes % (Manual) 2 % (20-50) L 07/21/16 05:50 Monocytes % (Manual) 3 % (0-10) 07/21/16 05:50 Toxic Granulation Present 07/21/16 05:50 Platelet Estimate Normal (NORMAL) 07/21/16 05:50 Poikilocytosis (manual Slight 07/21/16 05:50 Tear Drop Cells Slight 07/21/16 05:50 Ovalocytes Slight 07/21/16 05:50 PT 11.4 SECONDS (9.6-11.2) H 07/19/16 10:40 INR 1.10 (0.92-1.08) H 07/19/16 10:40 APTT 28.1 SECONDS (23.3-32.5) 07/19/16 10:40 Sodium 141 mmol/l (132-148) 07/23/16 06:30 Potassium 3.8 MMOL/L (3.6-5.0) 07/23/16 06:30 Chloride 105 mmol/L (98-107) 07/23/16 06:30 Carbon Dioxide 29 mmol/L (22-30) 07/23/16 06:30 Anion Gap 11 (10-20) 07/23/16 06:30 BUN 21 mg/dl (9-20) H 07/23/16 06:30 Creatinine 1.1 mg/dL (0.8-1.5) 07/23/16 06:30 Est GFR ( Amer) > 60 07/23/16 06:30 Est GFR (Non-Af Amer) > 60 07/23/16 06:30 Random Glucose 119 mg/dL (75-110) H 07/23/16 06:30 Calcium 8.9 mg/dL (8.4-10.2) 07/23/16 06:30 Total Bilirubin 1.0 mg/dl (0.2-1.3) 07/19/16 10:40 AST 21 U/L (17-59) 07/19/16 10:40 ALT 23 U/L (21-72) 07/19/16 10:40 Alkaline Phosphatase 86 U/L (38-126) 07/19/16 10:40 Troponin I < 0.0120 ng/mL (0.00-0.120) 07/19/16 10:40 Total Protein 7.9 G/DL (6.3-8.2) 07/19/16 10:40 Albumin 4.3 g/dL (3.5-5.0) 07/19/16 10:40 Globulin 3.6 gm/dL (2.2-3.9) 07/19/16 10:40 Albumin/Globulin Ratio 1.2 (1.0-2.1) 07/19/16 10:40 Urine Color Yellow (YELLOW) 07/20/16 08:00 Urine Clarity Clear (Clear) 07/20/16 08:00 Urine pH 6.0 (5.0-8.0) 07/20/16 08:00 Ur Specific [place] 1.008 (1.003-1.030) 07/20/16 08:00 Urine Protein Negative mg/dL (NEGATIVE) 07/20/16 08:00 Urine Glucose (UA) Neg mg/dL (Normal) 07/20/16 08:00 Urine Ketones Negative mg/dL (NEGATIVE) 07/20/16 08:00 Urine Blood Small (NEGATIVE) 07/20/16 08:00 Urine Nitrate Negative (NEGATIVE) 07/20/16 08:00 Urine Bilirubin Negative (NEGATIVE) 07/20/16 08:00 Urine Urobilinogen 0.2-1.0 mg/dL (0.2-1.0) 07/20/16 08:00 Ur Leukocyte Esterase Neg Vahid/uL (Negative) 07/20/16 08:00 Urine RBC (Auto) 1 /hpf (0-3) 07/20/16 08:00 Urine Microscopic WBC < 1 /hpf (0-5) 07/20/16 08:00 Blood Type O POSITIVE 05/24/17 06:20 Blood Type Confirm O POSITIVE 07/20/16 08:00 Antibody Screen Negative 07/20/16 06:20 BBK History Checked No verified bt 07/20/16 06:20 - Hospital Course Hospital Course: This is a 56 y/o male admitted for intractable pain in LS area with radiculopathy. He had laminectomy of the L4L5 area. Post op period was unremarkable except for post op pain which rsponded well to meds and GERD sx. He had to stay for few days post op due o significant drainage. He was sent home in stable condition and advised follow up with Dr Mederos in 1 to 2 weeks. Discharge Exam - Head Exam Head Exam: NORMAL INSPECTION - Eye Exam Eye Exam: Normal appearance - Respiratory Exam Respiratory Exam: NORMAL BREATHING PATTERN - Cardiovascular Exam Cardiovascular Exam: REGULAR RHYTHM - GI/Abdominal Exam GI & Abdominal Exam: Normal Bowel Sounds - Neurological Exam Neurological exam: CN II-XII Intact, Oriented x3 - Psychiatric Exam Psychiatric exam: Normal Mood - Skin Skin Exam: Intact Discharge Plan - Follow Up Plan Condition: STABLE Disposition: HOME/ ROUTINE Additional Instructions: Rx given advised follow up with Dr Mederos. Gave thorazine for hiccups x few days prn and pantoprazole advised to continue BP meds .
== END 2016-07-24 15:08 | disposition home or self-care (01) | DRG 460 ==
LOC: H.ER 09:14 → H.ERHOLD 10:06 → UNDOADMIN 10:06 → H.ERHOLD 13:03 → H.MEDSURG1 13:03 → H.TEL 07-20 14:35
PROVIDERS: ADMIT Family Medicine; ATTEND Family Medicine
PROC: 0SG10Z1 (ICD-10-PCS; principal; 2016-07-20 09:00)
DX: M47.27 Other spondylosis with radiculopathy, lumbosacral region (principal); M51.16 Intervertebral disc disorders with radiculopathy, lumbar region; I12.9 Hypertensive chronic kidney disease with stage 1 through stage 4 chronic kidney disease, or unspecified chronic kidney disease; K21.9 Gastro-esophageal reflux disease without esophagitis; K29.00 Acute gastritis without bleeding; N18.9 Chronic kidney disease, unspecified; I25.10 Atherosclerotic heart disease of native coronary artery without angina pectoris; R00.1 Bradycardia, unspecified; Z79.82 Long term (current) use of aspirin; Z86.010 Personal history of colon polyps

== ENCOUNTER 2018-03-10 16:06 | Observation (INO) | payer BC, OTHER ==
[2018-03-10 16:06] VITALS: BMI 26.7
[2018-03-10] MEDS ORDERED: Sodium Chloride 0.9% 500 ML IV STA (16:30)
--- NOTE | 2018-03-10 16:41 | ED PDOC ---
HPI: Chest Pain Time Seen by Provider: 03/10/18 16:19 Chief Complaint (Nursing): Chest Pain Chief Complaint (Provider): Chest Pain History Per: Patient History/Exam Limitations: no limitations Onset/Duration Of Symptoms: Hrs (today during midday) Current Symptoms Are (Timing): Still Present Quality: "Pain" Exacerbating Factors: Movement Additional Complaint(s): 57 y/o male with a PMHx of HTN and CAD presents to the ED for an evaluation of sudden onset of chest pain today during the midday. He states this month he vi sited Dr. Carson for his high blood pressure and was referred to the ED. Patient took Aspirin 325mg prior to arrival. He also states, he visited his high school tutor for evaluation of enlarged heart and clogged artery for which he received an echo test last week and was scheduled for stress test. Patient works as a security patrol driver and states he feels pain in the left forearm. Currently, he feels better without any movement in ED. Otherwise, patient denies fever, cough, shortness of breath, weakness, numbness, tingling, dizziness, nausea, diarrhea, vomiting, headache, confusion, recent travel or any hormone treatment. Took 325mg asa today. PMD: Dr. Carson Post Office Manager: Dr. Khan Past Medical History Reviewed: Historical Data, Nursing Documentation, Vital Signs Vital Signs: Last Vital Signs Temp 97.8 F 03/10/18 16:11 Pulse 80 03/10/18 16:11 Resp 18 03/10/18 16:11 BP 111/77 03/10/18 16:11 Pulse Ox 99 03/10/18 16:11 - Medical History PMH: Back Problems, CAD, HTN, Chronic Kidney Disease Denies: Depression - Family History Family History: States: Unknown Family Hx - Immunization History Hx Tetanus Toxoid Vaccination: No Hx Influenza Vaccination: No Hx Pneumococcal Vaccination: No - Home Medications Home Medications: Ambulatory Orders Medication Instructions Recorded Aspirin [Ecotrin] 81 mg PO DAILY #0 tabec 08/24/14 Cyanocobalamin [Vitamin B12] 250 mcg PO DAILY 07/19/16 Lisinopril/Hydrochlorothiazide 1 each PO BID 07/19/16 [Lisinopril-Hctz 20-12.5 mg Tab] Metoprolol Tartrate [Lopressor] 25 mg PO Q12 #180 tab 07/24/16 Tobramycin 0.3% [Tobramycin 5 Ml] 2 drop OD QID #1 bottle 05/01/17 - Allergies Allergies/Adverse Reactions: Allergies Allergy/AdvReac Type Severity Reaction Status Date / Time No Known Allergies Allergy Verified 03/10/18 16:11 Review of Systems ROS Statement: Except As Marked, All Systems Reviewed And Found Negative Constitutional: Negative for: Fever, Chills Cardiovascular: Positive for: Chest Pain Respiratory: Negative for: Cough, Shortness of Breath Gastrointestinal: Negative for: Nausea, Vomiting, Abdominal Pain, Diarrhea Musculoskeletal: Positive for: Arm Pain (left) Skin: Negative for: Rash Neurological: Negative for: Weakness, Numbness, Confusion, Headache, Dizziness, Other (tingling) Physical Exam - Reviewed Nursing Documentation Reviewed: Yes Vital Signs Reviewed: Yes - Physical Exam Appears: Positive for: Non-toxic, No Acute Distress Head Exam: Positive for: ATRAUMATIC, NORMAL INSPECTION, NORMOCEPHALIC Skin: Positive for: Normal Color, Warm, Dry. Negative for: Rash Eye Exam: Positive for: EOMI, Normal appearance, PERRL ENT: Positive for: Normal ENT Inspection Neck: Positive for: Normal, Painless ROM, Supple. Negative for: Decreased ROM Cardiovascular/Chest: Positive for: Regular Rate, Rhythm Respiratory: Positive for: Normal Breath Sounds. Negative for: Decreased Breath Sounds, Wheezing, Respiratory Distress Gastrointestinal/Abdominal: Positive for: Normal Exam, Soft. Negative for: Tenderness, Guarding, Rebound Back: Positive for: Normal Inspection. Negative for: L CVA Tenderness, R CVA Tenderness Extremity: Positive for: Normal ROM. Negative for: Tenderness, Pedal Edema, Deformity Neurologic/Psych: Positive for: Alert, Oriented (x3). Negative for: Motor/Sensory Deficits - Laboratory Results Result Diagrams: 03/10/18 18:00 03/10/18 18:00 Lab Results: no acute - ECG ECG: Positive for: Interpreted By Me, Viewed By Me Interpretation Of Abn EKG: similar to old O2 Sat by Pulse Oximetry: 99 (RA) Pulse Ox Interpretation: Normal - Radiology X-Ray: Read By Radiologist X-Ray Interpretation: No Acute Disease - Progress ED Course And Treament: 1943: Stable. AAOx3. Pt. pain free. Considering risk factors, will need obs. 1999: Spoke with Dr. Carson. Will admit obs tele. Medical Decision Making Medical Decision Making: Time: 163 Initial impression: chest pain Plan: EKG B-type natriuretic peptide CMP Troponin I CBC w/ differential Partial thromboplastin time [COAG] Prothrombin Time [COAG] Chest portable [RAD] Normal saline 500 mls/hr Reevaluation 1721 CXR FINDINGS: LUNGS: 0.3 effort. PLEURA: No significant pleural effusion identified, no pneumothorax apparent. CARDIOVASCULAR: No aortic atherosclerotic calcification present. Likely technical magnification of the cardiac size though mild cardiomegaly is not completely excluded. No pulmonary vascular congestion. OSSEOUS STRUCTURES: No significant abnormalities. VISUALIZED UPPER ABDOMEN: Normal. OTHER FINDINGS: None. IMPRESSION: Poor stream volume. No acute infiltrate. No pleural effusion or pneumothorax identified. Scribe Attestation: Documented by Dolores Disla, acting as a scribe for Nick Rivera MD Provider Scribe Attestation: All medical record entries made by the Scribe were at my direction and personally dictated by me. I have reviewed the chart and agree that the record accurately reflects my personal performance of the history, physical exam, medical decision making, and the department course for this patient. I have also personally directed, reviewed, and agree with the discharge instructions and di sposition. Disposition - Clinical Impression Clinical Impression: Chest pain - Patient ED Disposition Is Patient to be Admitted: Yes Counseled Patient/Family Regarding: Studies Performed, Diagnosis - Disposition Disposition Time: 19:30 Condition: FAIR - Pt Status Changed To: Hospital Disposition Of: Observation - POA Present On Arrival: None
[2018-03-10 17:24] LABS: BASO % 1.2 % (0.0-2.0); EOS # 0.2 K/uL (0.0-0.7); HEMOGLOBIN 16.4 g/dL (12.0-18.0); LYMPH % 47.7 % (20.0-40.0); MEAN CELL VOLUME 88.9 fl (80.0-94.0); MEAN CORPUSCULAR HEMOGLOBIN 29.2 pg (27.0-31.0); MEAN CORPUSCULAR HGB CONC 32.8 g/dL (33.0-37.0); MEAN PLATELET VOLUME 8.7 fl (7.2-11.7); MONO # 0.5 K/uL (0.0-0.8); MONO % 13.2 % (0.0-10.0); NEUT # 1.4 K/uL (1.8-7.0); NEUT % 33.9 % (50.0-75.0); NRBC % 0.1 % (0.0-0.0); RBC 5.62 Mil/uL (4.40-5.90); RED CELL DISTRIBUTION WIDTH 13.2 % (11.5-14.5); WHITE BLOOD COUNT 4.1 K/uL (4.8-10.8)
--- NOTE | 2018-03-10 17:25 | RAD ---
Date of service: 03/10/2018 HISTORY: pain COMPARISON: Portable chest 07/19/2016. FINDINGS: LUNGS: 0.3 effort. PLEURA: No significant pleural effusion identified, no pneumothorax apparent. CARDIOVASCULAR: No aortic atherosclerotic calcification present. Likely technical magnification of the cardiac size though mild cardiomegaly is not completely excluded. No pulmonary vascular congestion. OSSEOUS STRUCTURES: No significant abnormalities. VISUALIZED UPPER ABDOMEN: Normal. OTHER FINDINGS: None. IMPRESSION: Poor stream volume. No acute infiltrate. No pleural effusion or pneumothorax identified.
[2018-03-10 18:14] LABS: BASO # 0.1 K/uL (0.0-0.2); BASO % 1.2 % (0.0-2.0); EOS # 0.2 K/uL (0.0-0.7); EOS % 3.9 % (0.0-4.0); LYMPH % 46.4 % (20.0-40.0); MEAN CELL VOLUME 88.8 fl (80.0-94.0); MEAN CORPUSCULAR HEMOGLOBIN 29.1 pg (27.0-31.0); MEAN CORPUSCULAR HGB CONC 32.8 g/dL (33.0-37.0); MEAN PLATELET VOLUME 8.5 fl (7.2-11.7); MONO # 0.6 K/uL (0.0-0.8); MONO % 13.2 % (0.0-10.0); NEUT # 1.5 K/uL (1.8-7.0); NEUT % 35.3 % (50.0-75.0); NRBC % 0.1 % (0.0-0.0); RBC 5.5 Mil/uL (4.40-5.90); RED CELL DISTRIBUTION WIDTH 12.9 % (11.5-14.5); WHITE BLOOD COUNT 4.2 K/uL (4.8-10.8)
[2018-03-10 18:20] LABS: INR 1.1; PROTHROMBIN TIME 12.4 Seconds (9.8-13.1)
[2018-03-10 18:23] LABS: PARTIAL THROMBOPLASTIN TIME 33.4 Seconds (25.6-37.1)
[2018-03-10 18:32] LABS: ALB/GLOB RATIO 1.1 (1.0-2.1); ALBUMIN 4.1 g/dL (3.5-5.0); ALT/SGPT 34 U/L (21-72); AST/SGOT 65 U/L (17-59); BLOOD UREA NITROGEN 16 mg/dl (9-20); CALCIUM 9.2 mg/dL (8.4-10.2); GFR NON-AFRICAN AMERICAN 57
[2018-03-10 18:43] LABS: B-TYPE NATRIURETIC PEPTIDE 44.3 pg/ml (0-900)
[2018-03-11] MEDS: Metoprolol Succinate 25 mg XL Tab PO SCH (08:58)
[2018-03-11] MEDS ORDERED: Metoprolol Succinate 25 mg XL Tab PO SCH (09:00)
--- NOTE | 2018-03-11 22:48 | CARD ---
APPROVED REPORT Date of service: 03/10/2018 EKG Measurement Heart [id number] P62 [id number] <Conclusion> Normal sinus rhythm Possible Left atrial enlargement Left ventricular hypertrophy with repolarization abnormality Prolonged QT Abnormal ECG
--- NOTE | 2018-03-12 01:32 | CP.PCM.HP ---
History of Present Illness - History of Present Illness History of Present Illness: This is a 57 y/o male admitted for chest pain since midday . He follows up in my office and is under tx for HTN. Last week he came in to the office with extremely high BP. He responded with combo meds for HTn and was referrred to Dr Khan. EKG showed ST T wave inversion and LVH. He was advised and scheduled to have stress test this week. He denies any SOB . Claims that the chest pain is mostly retrosternal but did not radiate. He has been on Metoprolol Amlodipine and allopurinol. Present on Admission - Present on Admission Any Indicators Present on Admission: No History of DVT/PE: No History of Uncontrolled Diabetes: No Urinary Catheter: No Decubitus Ulcer Present: No Past Patient History - Infectious Disease Hx of Infectious Diseases: None - Tetanus Immunizations Tetanus Immunization: Unknown - Past Medical History & Family History Past Medical History?: Yes - Past Social History Smoking Status: Never Smoked - CARDIAC Hx Cardiac Disorders: Yes Hx Hypertension: Yes - PULMONARY Hx Respiratory Disorders: No - NEUROLOGICAL Hx Neurological Disorder: No - HEENT Hx HEENT Problems: No - RENAL Hx Chronic Kidney Disease: Yes - ENDOCRINE/METABOLIC Hx Endocrine Disorders: No - HEMATOLOGICAL/ONCOLOGICAL Hx Blood Disorders: No - INTEGUMENTARY Hx Dermatological Problems: No - MUSCULOSKELETAL/RHEUMATOLOGICAL Hx Musculoskeletal Disorders: Yes Hx Back Pain: Yes (CHRONIC) Hx Falls: No - GASTROINTESTINAL Hx Gastrointestinal Disorders: No - GENITOURINARY/GYNECOLOGICAL Hx Genitourinary Disorders: No - PSYCHIATRIC Hx Depression: No - SURGICAL HISTORY Hx Surgeries: Yes Hx Cardiac Catheterization: Yes Other/Comment: Colonoscopy - ANESTHESIA Hx Anesthesia: Yes Meds Allergies/Adverse Reactions: Allergies Allergy/AdvReac Type Severity Reaction Status Date / Time No Known Allergies Allergy Verified 03/10/18 16:11 Physical Exam - Head Exam Head Exam: NORMAL INSPECTION - Eye Exam Eye Exam: Normal appearance - ENT Exam ENT Exam: Mucous Membranes Moist - Respiratory Exam Respiratory Exam: Clear to Auscultation Bilateral - Cardiovascular Exam Cardiovascular Exam: REGULAR RHYTHM - GI/Abdominal Exam GI & Abdominal Exam: Normal Bowel Sounds - Neurological Exam Neurological exam: CN II-XII Intact - Psychiatric Exam Psychiatric exam: Normal Mood Results - Vital Signs Recent Vital Signs: Last Vital Signs Temp 98 F 03/11/18 20:25 Pulse 74 03/11/18 20:25 Resp 16 03/11/18 20:25 BP 131/85 03/11/18 20:25 Pulse Ox 97 03/11/18 20:25 - Labs Result Diagrams: 03/10/18 18:00 03/10/18 18:00 Labs: Laboratory Results - last 24 hr 03/11/18 03/11/18 01:57 12:47 POC Glucose (mg/dL) 58 L Troponin I < 0.0120 Assessment & Plan (1) Chest pain Status: Acute (2) Hypertension Status: Acute (3) Myocardial infarction Status: Acute - Assessment and Plan (Free Text) Assessment: Plan Cardiology eval observe For stress test
[2018-03-12 04:38] VITALS: O2SAT 98
--- NOTE | 2018-03-12 07:35 | CP.PCM.CON ---
History of Present Illness - History of Present Illness History of Present Illness: I was asked to evaluate patient by Dr Carson Patient seen 03/12/18 [id number] Patient is a 57 year old amle with HTN hypercholesterolemia who presents with chest pain. He is known to me from the office. He recently was evaluated for intermittent substernal chest pain which is pressure like in nature. His resting EKG is abnormal, with precordial T wave inversions. The patient was scheduled outpatient for a stress test however presented with chest pain from his doctor's office. Review of Systems - Constitutional Constitutional: absent: As Per HPI, Anorexia, Chills, Daytime Sleepiness, Excessive Sweating, Fatigue, Fever, Frequent Falls, Headache, Increased Appetit e, Lethargy, Malaise, Night Sweats, Snoring, Sleep Apnea, Weight Gain, Weight Loss, Weakness, Other - EENT Eyes: absent: As Per HPI, Blind Spots, Blurred Vision, Change in Vision, Decreased Night Vision, Diplopia, Discharge, Dry Eye, Exophthalmos, Floaters, Irritation, Itchy Eyes, Loss of Peripheral Vision, Pain, Photophobia, Requires Corrective Lenses, Sees Flashes, Spots in Vision, Tunnel Vision, Other Visual Disturbances, Loss of Vision, Other Ears: absent: As Per HPI, Decreased Hearing, Ear Discharge, Ear Pain, Tinnitus, Abnormal Hearing, Disequilibrium, Dizziness, Other Nose/Mouth/Throat: absent: As Per HPI, Epistaxis, Nasal Congestion, Nasal Discharge, Nasal Obstruction, Nasal Trauma, Nose Pain, Post Nasal Drip, Sinus Pain, Sinus Pressure, Bleeding Gums, Change in Voice, Dental Pain, Dry Mouth, Dysphagia, Halitosis, Hoarsness, Lip Swelling, Mouth Lesions, Mouth Pain, Odynophagia, Sore Throat, Throat Swelling, Tongue Swelling, Facial Pain, Neck Pain, Neck Mass, Other - Cardiovascular Cardiovascular: Chest Pain at Rest - Respiratory Respiratory: absent: As Per HPI, Cough, Dyspnea, Hemoptysis, Dyspnea on Exertion , Wheezing, Snoring, Stridor, Pain on Inspiration, Chest Congestion, Excessive Mucous Production, Change in Mucous Color, Pain with Coughing, Other - Gastrointestinal Gastrointestinal: absent: As Per HPI, Abdominal Pain, Belching, Bloating, Change in Bowel Habits, Change in Stool Character, Coffee Ground Emesis, Constipation, Cramping, Diarrhea, Dyspepsia, Dysphagia, Early Satiety, Excessive Flatus, Fecal Incontinence, Heartburn, Hematemesis, Hematochezia, Loose Stools, Melena, Nausea, Odynophagia, Temesmus, Vomiting, Other - Genitourinary Genitourinary: absent: As Per HPI, Change in Urinary Stream, Difficulty Urin ating, Dysuria, Flank Pain, Hematuria, Pyuria, Nocturia, Urinary Incontinence, Urinary Frequency, Urinary Hesitance, Urinary Urgency, Voiding Freq/Small Amts, Freq UTI, Hx Renal/Bladder Calculi, Hx /Renal Surgery, Bladder Distension, Other - Musculoskeletal Musculoskeletal: absent: As Per HPI, Abnormal Gait, Arthralgias, Atrophy, Back Pain, Deformity, Joint Swelling, Limited Range of Motion, Loss of Height, Muscle Cramps, Muscle Weakness, Myalgias, Neck Pain, Numbness, Radiating Pain into Limb, Stiffness, Tingling, Other - Integumentary Integumentary: absent: As Per HPI, Acne, Alopecia, Bleeding Lesions, Change in Hair, Change in Nails, Change in Pigmentation, Changing Lesions, Dry Skin, Erythema, Furuncle, Hirsutism, Lesions, New Lesions, Non-Healing Lesions, Photosensitivity, Pruritus, Rash, Skin Pain, Skin Ulcer, Sores, Striae, Swelling, Unusual Bruising, Wounds, Jaundice, Other - Neurological Neurological: absent: As Per HPI, Abnormal Gait, Abnormal Hearing, Abnormal Movements, Abnormal Speech, Behavioral Changes, Burning Sensations, Confusion, Convulsions, Disequilibrium, Dizziness, Numbness, Focal Weakness, Frequent Falls, Headaches, Lack of Coordination, Loss of Vision, Memory Loss, Paresthesias, Radicular Pain, Restless Legs, Sensory Deficit, Syncope, Tingling, Tremor, Vertigo, Weakness, Other Visual Disturbances, Other - Psychiatric Psychiatric: absent: As Per HPI, Abnormal Sleep Pattern, Anhedonia, Anxiety, A uditory Hallucinations, Behavioral Changes, Change in Appetite, Change in Libido, Confusion, Depression, Difficulty Concentrating, Hallucinations, Homicidal Ideation, Hopelessness, Irritability, Memory Loss, Mood Swings, Panic Attacks, Paranoia, Suicidal Ideation, Visual Hallucinations, Tactile Carl ucinations, Other - Endocrine Endocrine: absent: As Per HPI, Change in Body Appearance, Change in Libido, Cold Intolorance, Deepening of Voice, Excessive Sweating, Fatigue, Flushing, Heat Intolorance, Increase in Ring/Shoe/Hat Size, Palpitations, Polydipsia, Po lyphagia, Polyuria, Other - Hematologic/Lymphatic Hematologic: absent: As Per HPI, Easy Bleeding, Easy Bruising, Lymphadenopathy, Other Past Patient History - Infectious Disease Hx of Infectious Diseases: None - Tetanus Immunizations Tetanus Immunization: Unknown - Past Medical History & Family History Past Medical History?: Yes - Past Social History Smoking Status: Never Smoked - CARDIAC Hx Cardiac Disorders: Yes Hx Hypertension: Yes - PULMONARY Hx Respiratory Disorders: No - NEUROLOGICAL Hx Neurological Disorder: No - HEENT Hx HEENT Problems: No - RENAL Hx Chronic Kidney Disease: Yes - ENDOCRINE/METABOLIC Hx Endocrine Disorders: No - HEMATOLOGICAL/ONCOLOGICAL Hx Blood Disorders: No - INTEGUMENTARY Hx Dermatological Problems: No - MUSCULOSKELETAL/RHEUMATOLOGICAL Hx Musculoskeletal Disorders: Yes Hx Back Pain: Yes (CHRONIC) Hx Falls: No - GASTROINTESTINAL Hx Gastrointestinal Disorders: No - GENITOURINARY/GYNECOLOGICAL Hx Genitourinary Disorders: No - PSYCHIATRIC Hx Depression: No - SURGICAL HISTORY Hx Surgeries: Yes Hx Cardiac Catheterization: Yes Other/Comment: Colonoscopy - ANESTHESIA Hx Anesthesia: Yes Meds Allergies/Adverse Reactions: Allergies Allergy/AdvReac Type Severity Reaction Status Date / Time No Known Allergies Allergy Verified 03/10/18 16:11 - Medications Medications: Current Medications Aspirin (Ecotrin) 81 mg PO BID [facility] Last Admin: 03/11/18 18:13 Dose: 81 mg Losartan Potassium (Cozaar) 50 mg PO DAILY [facility] Last Admin: 03/11/18 08:58 Dose: 50 mg Metoprolol Succinate (Toprol Xl) 25 mg PO DAILY [facility] Last Admin: 03/11/18 08:58 Dose: 25 mg Physical Exam - Constitutional Appears: Non-toxic - Head Exam Head Exam: NORMAL INSPECTION - Eye Exam Eye Exam: Normal appearance - ENT Exam ENT Exam: Mucous Membranes Moist - Neck Exam Neck exam: Positive for: Full Rom - Respiratory Exam Respiratory Exam: NORMAL BREATHING PATTERN - Cardiovascular Exam Cardiovascular Exam: REGULAR RHYTHM - GI/Abdominal Exam GI & Abdominal Exam: Normal Bowel Sounds - Rectal Exam Rectal Exam: Deferred - Extremities Exam Extremities exam: Positive for: normal inspection - Back Exam Back exam: NORMAL INSPECTION - Neurological Exam Neurological exam: Alert, Oriented x3 - Psychiatric Exam Psychiatric exam: Normal Affect - Skin Skin Exam: Normal Color Results - Vital Signs Recent Vital Signs: Last Vital Signs Temp 97.6 F 03/12/18 04:37 Pulse 59 L 03/12/18 04:37 Resp 18 03/12/18 04:37 BP 122/81 03/12/18 04:37 Pulse Ox 98 03/12/18 04:37 - Labs Result Diagrams: 03/10/18 18:00 03/10/18 18:00 Labs: Laboratory Results - last 24 hr 03/11/18 12:47 POC Glucose (mg/dL) 58 L - EKG Data EKG Interpreted by: Myself EKG shows normal: Sinus rhythm - EKG Data EKG Specific Queries T Wave Inversions Noted in: V2, V3, V4, V5, V6 Assessment & Plan (1) Chest pain Assessment and Plan: patient will need evlauation for myocardial ischemia. he has an abnormal EKG which is unchanged form a previous EKG in the office. Treadmill stress testing alone will not give enough information and therefore recommend myocardial perfusion imaging. Status: Acute (2) Hypertension Status: Acute
[2018-03-12 08:23] VITALS: RESP 20
[2018-03-12] MEDS: Metoprolol Succinate 25 mg XL Tab PO SCH (10:48)
[2018-03-12 12:40] VITALS: BP 128/89; PULSE 73; TEMP 98.1
--- NOTE | 2018-03-12 15:26 | CP.PCM.PCO ---
Assessment/Plan - Assessment and Plan (Free Text) Assessment: Patient seen and examined VSS. Blood pressure under control Denies chest pain or palpitations Stress test reviewed with Retail Customer Service Representative, negative stress test. Cleared for dc with blood pressure medications follow up with Dr boothe and dr valladares outpatient.
--- NOTE | 2018-03-12 21:02 | CARD ---
APPROVED REPORT Date of service: 03/12/2018 Protocol: YOVANI Test Type: Stress Nuclear Medications: Ecotrin 81mg, Losartan 50mg, Metoprolol 25mg Medical History: Hypertension, Family History Target HR: 165 bpm Resting ECG: abnormal Resting Heart Rate: 73 bpm Resting Blood Pressure: 142/92mmHg submaximum (85%): 140 bpm TEST SUMMARY [id number]. [id number]. [id number]. [id number]/92.0. [id number]/78.0. [id number]/100.0. [id number]/90.0. [id number]/90.0. POST EXERCISE Reason for Termination: Fatigue Target HR: No Max HR: 131 bpm 80% of Maximum Predicted HR: 165 bpm Exercise duration: 07:06 min:sec, 3 Stage Exercise capacity: 8.7METs Max Blood Pressure: 210/90mmHg Blood Pressure response to exercise: normal resting BP - exaggerated response Heart Rate response to exercise: appropriate Chest Pain: No, none Angina index: 0 Arrhythmia: No, none ST Change: No, none Deviation: 0 mm Clinical Indications Under Appropriate Use Criteria 57 years old male admitted to the hospital with chest pressure and abnormal electrocardiogram at rest. Stress EKG Interpretation Patient exercised in a Yovani protocole for a total of 7.06 miniutes. Stress test was stopped due to hypertension. NO chest pain was reported. RESTING ECG Rhythm: Sinus Conduction: Normal Arrhythmias: None Repolarization: Normal STRESS ECG Rhythm: Sinus Conduction: Normal Arrhythmias: None Repolarization: Normal st and T wave inversion both at rest during exercises. ST-Segment changes. Timing of ST-Segment Depression: Stress and recovery ST-Segment Configuration: Downsloping EXAM: Myocardial Perfusion REST/STRESS Image QualityGood Imaging Protocol The imaging protocol used to acquire images was Stress Tc-99m/rest Tc-99m 1 day Stress Spect myocardial perfusion imaging was performed in supine position 90 minutes following the injection of 10 mCi of Tc-99 Myoview. Time of rest injection: 12:09 Time of rest imagin:16 At peak stress, the patient was injected intravenously with 10mCi of Tc-99 tetrofosmin after an infusion time of minutes and seconds. Time of stress injection: 10:20 Time of stress imagin:51 Gated Rest Spect was performed 67 minutes after intravenous Tc-99 Myoview injection. The images were gated to evaluate regional wall motion and calculate ventricular ejection fraction. NUCLEAR IMAGE INTERPRETATION Study quality was excellent. Left Ventricular size was Normal at Rest and Stress. Lung uptake was Normal. Left Ventricular ejection fraction is 55%. The rest and stress images show normal perfusion, normal contraction and thickening. LV Perfusion Normal perfusion scan LV Perfusion 1 The rest and stress images show normal perfusion. Wall Motion Normal wall motion CONCLUSION 1. Abnormal electrocardiogram at rest and at exercises. 2. Normal perfusion scan. No evidence of Myocardial ischemia 3. St changes seen on the electrocardiogram probably related to hypertensve heart disease
== END 2018-03-12 16:35 | disposition home or self-care (01) ==
LOC: H.ER 16:06 → H.ERHOLD 20:30 → H.TEL 03-11 02:15
PROVIDERS: ADMIT Family Medicine; ATTEND Family Medicine
DX: R07.89 Other chest pain (principal); E78.00 Pure hypercholesterolemia, unspecified; I10 Essential (primary) hypertension; I25.10 Atherosclerotic heart disease of native coronary artery without angina pectoris; I12.9 Hypertensive chronic kidney disease with stage 1 through stage 4 chronic kidney disease, or unspecified chronic kidney disease; N18.9 Chronic kidney disease, unspecified; Z79.82 Long term (current) use of aspirin; G89.29 Other chronic pain
CPT/HCPCS: 71045; 78452; 80053; 82948; 83880; 84484; 85025; 85610; 85730; 93005; 93017; 96360; 96361; 99285; A9502; G0378; J7040